=== PATIENT | female | born 1960 | race Caucasian/White ===

== ENCOUNTER → 2019-07-23 | Day surgery (SDC) | payer OTHER ==
[~2019-07-23] MED LIST: AUGMENTIN 875-1 EACH PO; FLUOXETINE HCL20 M1 PO; FLUOXETINE HCL60 MG PO; LIPITOR10 MG PO; NORCO 5-325 TA1 EAC1 PO; SYNTHROID88 MC1 PO; VANCOCIN 125 M125 M1 IV; WELLBUTRIN XL150 MG PO; WELLBUTRIN XL300 MG PO
--- NOTE | ~2019-07-23 | OP ---
[address] [address] OPERATIVE REPORT Name: LILY ULRICH Room: [facility]#: [id number] Admission: 07/23/19 Attend Phys: Zak Bland II Discharge: Date of : 56 Report #: [id number] THIS REPORT FOR: //name// cc: Physician not on staff Physician not on staff ~ THIS REPORT FOR: //name// CC: FELECIA MCCOY Physician staff Zak Bland DATE OF SERVICE: 07/23/2019 PREOPERATIVE DIAGNOSIS: Left ankle and Achilles tendon dog bite with infection. POSTOPERATIVE DIAGNOSIS: Left ankle and Achilles tendon dog bite with infection. PROCEDURES: 1. Irrigation and debridement of left ankle joint. 2. Irrigation and debridement of left Achilles tendon sheath and nearby tendons. SURGEON: Zak Bland II, DO SENIOR BILLING CONSULTANT: JANETT Cardona ANESTHESIA: Per operative record. ESTIMATED BLOOD LOSS: Minimal. ANTIBIOTICS: Per operative record. DRAINS: None. COMPLICATIONS: None. CONDITION OF THE PATIENT: Stable to recovery room. BRIEF HISTORY: The patient was seen in the preoperative area in clinic prior to her scheduled surgery. She had been 4 days out from a dog bite, which had a significant puncture wound on the posterior aspect of the ankle joint near the Achilles tendon. Purulence was noted coming out of this as well as erythema area, which had expanded past the boundaries of a previously drawn Sharpie line presumably placed in the Emergency Room several days prior. She had been on antibiotics, but had continued difficulty with movement of her ankle joint and [facility] [address] [place] [address] OPERATIVE REPORT Name: LILY ULRICH Room: [facility]#: [id number] Admission: 07/23/19 Attend Phys: Zak Bland II Discharge: Date of : 56 Report #: [id number] discussion was had to have exploration of the Achilles tendon as well as irrigation and debridement of the ankle joint and these tendon sheaths nearby. The patient elected to proceed, assuming all risks. DESCRIPTION OF PROCEDURE: The patient was taken to the operative suite and placed supine on the OR table, given appropriate anesthesia. The patient was placed in the beanbag in a lateral position with the left ankle facing superiorly. This left ankle was sterilely prepped and draped. A preoperative culture was obtained through the puncture wound prior to antibiotic administration. These were sent off for appropriate culture. Antibiotics were then administered IV and an incision was then made proximally and distally to the dog bite, approximately 2 inches. This was carried down to the subcutaneous tissues. There was noted to be slight purulence noted to the posterior aspect of the Achilles tendon. This tendon sheath was opened and a small curette was utilized to remove excess necrotic tissue in this region. Irrigation was then performed utilizing bacitracin solution with Pulsavac and 3 liters of this was utilized to cleanse the wound. Blunt dissection was then performed around the Achilles tendon as well as into the ankle joint through the posterior access point for all 3 liters. Another 3 liter bag was then utilized to cleanse the remaining portion of the joint without bacitracin in it. Final inspection was then performed showing approximately 10% of the Achilles tendon had been damaged due to the dog bite; however, the remaining 90% was intact. The peritenon had been necrotic and excess was removed utilizing a pair of Wilson scissors and curette. Ankle joint showed no further purulence and peroneal tendons were inspected without significant damage. Final irrigation once again performed. The local injection was performed. The patient was then closed utilizing a 3-0 nylon to the incision and horizontal mattress stitch loosely approximated to allow for secondary intent closure as well as drainage of the anterior portion of the wound. Soft dressing was then placed over the angle, reinforced with 4 x 4's and soft roll and an Stan wrap was placed. The patient transported to recovery room in stable condition. Counts were correct throughout the procedure. By: [id number] Bland II, DO /nt
[2019-07-23 13:35] LABS: HEMATOCRIT 33.5 % (37.0-47.0); HEMOGLOBIN 11.7 gm/dL (12.0-15.0); MCH 32.2 pg (26.0-34.0); MCV 92.1 fL (80.0-100.0); RBC 3.64 mil/uL (4.20-5.00); RDW-CV 12.9 % (10.5-14.5); WBC 7.1 thou/uL (4.0-11.0)
--- NOTE | 2019-07-23 13:40 | NUR ---
RIGHT BASILIC VESEL ACCESED FOR SINGLE LUMEN 4 BANGLADESHI POWER PICC. LINE PRE-TRIMMED TO 40CM AND ADVANCED TO THE ZERO SHOBHA WITH NO RESISTSTANCE MET. UPPER ARM CIRCUMFERENCE ABOVE INSERTION SITE= 11 1/2". SHERLOCK MAGNET AND 3CG CONFIRMATION OF TIP TERMINATION AT THE CAVOATRIAL JUNCTION APPRETIATED. GUIDEWIRE REMOVED, LINE FLUSHED AND INSERTINO SITE DRESSED. REPORT GIVEN TO CHANTEL HORAN.
[2019-07-23 13:46] LABS: CALCIUM 8.6 mg/dL (8.5-10.1); CREATININE 0.8 mg/dL (0.6-1.3)
--- NOTE | 2019-07-23 14:33 | EKG ---
[place] [address] ELECTROCARDIOGRAM REPORT Name: LILY ULRICH Room: [facility]#: [id number] Admission: 07/23/19 Attend Phys: Zak Bland, Discharge: Date of : 56 Date of Service: 07/23/19 1334 Report #: [id number] THIS REPORT FOR: //name// [facility] Test Date: 2019-07-23 Test Time: 13:34:40 Pat Name: LILY ULRICH Department: Room: Gender: F Clinical Informatics Manager: : 1960 Requested By: Zak Bland Order Number: [id number] Laura MD: Leroy Hammer Measurements Intervals [place] Rate: 76 P: 58 ME: 136 QRS: 44 QRSD: 101 T: 26 QT: 397 QTc: 447 Interpretive Statements Sinus rhythm No previous ECG available for comparison Electronically Signed On 07-23-2019 14:31:47 CDT by Leroy Hammer [email or web address] <ELECTRONICALLY SIGNED> By: Leroy Hammer MD, [facility] 07/23/19 1431 1334 1334 Leroy Hammer MD, FACC /EPI
== END | disposition home or self-care (01) ==
LOC: M.SUR 09:42
PROVIDERS: Orthopaedic Surgery
DX: S91.052A Open bite, left ankle, initial encounter (principal); M65.172 Other infective (teno)synovitis, left ankle and foot; L08.9 Local infection of the skin and subcutaneous tissue, unspecified; Z79.899 Other long term (current) drug therapy; W54.0XXA Bitten by dog, initial encounter; Y93.89 Activity, other specified; Y92.89 Other specified places as the place of occurrence of the external cause; Y99.8 Other external cause status